=== PATIENT | female | born 1980 | race African-American/Black ===

== ENCOUNTER 2016-09-26 19:57 | Emergency (ER) | payer OTHER ==
[~2016-09-26] VITALS: Ht 165.1 cm; Wt 127.0 kg
[2016-09-26 20:20] VITALS: BP 129/69
[2016-09-26] MEDS ORDERED: GENTAMICIN OPTH sol 0.3% 5ml EACHEYE ONE (20:45)
== END 2016-09-26 21:00 | disposition home or self-care (01) ==
LOC: ER 20:06
DX: H10.9 Unspecified conjunctivitis (principal)